=== PATIENT | female | born 1990 | race African-American/Black ===

== ENCOUNTER 2019-04-13 09:01 | Emergency (ER) | payer OTHER ==
[~2019-04-13] VITALS: Ht 144.8 cm; Wt 104.3 kg
--- NOTE | 2019-04-13 09:21 | EKG ---
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
[2019-04-13 09:31] LABS: ABSOLUTE NEUTROPHILS 4.3 thou/uL (1.4-8.2); BASOPHILS 1.2 % (0.0-2.0); HEMATOCRIT 35.4 % (37.0-47.0); HEMOGLOBIN 11.7 gm/dL (12.0-15.0); LYMPHOCYTES 38.6 % (24.0-44.0); MCH 27.2 pg (26.0-34.0); MCHC 33.1 g/dL (28.0-37.0); MCV 82.1 fL (80.0-100.0); MONOCYTES 6.4 % (1.0-8.0); PLATELET COUNT 445 thou/uL (150-400); POLYS 50.8 % (36.0-66.0); RBC 4.31 mil/uL (4.20-5.00); RDW 15.6 % (10.5-14.5); WBC 8.5 thou/uL (4.0-11.0)
[2019-04-13 09:39] LABS: ANION GAP 6 mmol/L (7-16); BUN 10 mg/dL (7-18); CALCIUM 9.2 mg/dL (8.5-10.1); CHLORIDE 102 mmol/L (98-107); CO2 28 mmol/L (21-32); CREATININE 0.9 mg/dL (0.6-1.0); GLUCOSE 98 mg/dL (74-106); POTASSIUM 4.8 mmol/L (3.5-5.1); SODIUM 136 mmol/L (136-145)
[2019-04-13 09:48] LABS: ALBUMIN 3.5 g/dL (3.4-5.0); SGOT 40 U/L (15-37); SGPT 31 U/L (30-65); TOTAL BILIRUBIN 0.2 mg/dL (<0.1-1.0); TOTAL PROTEIN 8.2 g/dL (6.4-8.2); TROPONIN-I <0.06 ng/mL (<0.06)
[2019-04-13 12:32] VITALS: BP 127/106
[2019-04-13] MEDS ORDERED: PANTOPRAZOLE SO40 M1 PO (12:45)
== END 2019-04-13 13:01 | disposition home or self-care (01) ==
LOC: ER 09:01
PROVIDERS: Emergency Medicine
DX: K21.9 Gastro-esophageal reflux disease without esophagitis (principal); R07.89 Other chest pain; Z88.8 Allergy status to other drugs, medicaments and biological substances